=== PATIENT | male | born 1955 | race African-American/Black ===

== ENCOUNTER 2019-01-10 08:43 | Day surgery (SDC) | payer OTHER | END 2019-01-10 15:10 | disposition home or self-care (01) | LOC: AMB-ENDOS 08:43 | DX: D12.5 Benign neoplasm of sigmoid colon (principal) ==

== ENCOUNTER 2019-01-24 05:30 | Day surgery (SDC) | payer OTHER | END 2019-01-24 16:50 | disposition home or self-care (01) | LOC: CIR.AMB 05:30 | DX: D17.21 Benign lipomatous neoplasm of skin and subcutaneous tissue of right arm (principal) ==